=== PATIENT | female | born 1965 | race American Indian/Alaskan Native ===

== ENCOUNTER 2017-11-09 18:44 | Emergency (ER) | payer MEDICARE ==
[2017-11-09] MEDS ORDERED: MOTRIN PO ONE (21:59)
--- NOTE | 2017-11-09 22:54 | Emergency Department Report ---
ED Female HPI - General Chief complaint: Urogenital-Female Stated complaint: PAIN IN LEFT BREAST Time Seen by Provider: 11/09/17 22:07 Source: patient Mode of arrival: Ambulatory Limitations: No Limitations - History of Present Illness Initial comments: History 2-year-old Afro-[place] female with a history of breast cancer with right breast since and no note removed. She has a history of bilateral silicone breast implant status post bilateral breast mastectomy. She comes in today for left breast with a dime-sized ulceration four-week and reports is not healing with use of Neosporin and having pain that shoots down her left inner arm. Patient denies any fever or chills no nausea no vomiting no discharge from the ulceration. Patient denies any numbness to the left hand. Denies any recent trauma to the breast. She does report wearing underwire bra and the wire has rubbed against her lateral aspect of her breasts and this caused an ulceration. She reports that this area is very very sensitive. Patient has been status post chemotherapy for breast cancer for 8 years. -: week(s) (1) Severity scale (0 -10): 6 - Related Data Home Medications Medication Instructions Recorded Confirmed Last Taken Citalopram [Celexa] 20 mg PO QDAY 04/05/13 04/05/13 Unknown Diazepam Tab [Valium] 5 mg PO QDAY 04/05/13 04/05/13 04/04/13 21:00 LORazepam [Ativan] 1 mg PO QDAY 04/05/13 04/05/13 Unknown Letrozole (Nf) [Femara (Nf)] 2.5 mg PO QDAY 04/05/13 04/05/13 Unknown Oxycodone HCl [Roxicodone TAB] 30 mg PO Q6H 04/05/13 04/05/13 Unknown lamoTRIgine [Lamotrigine] 100 mg PO QDAY 04/05/13 04/05/13 Unknown Previous Rx's Medication Instructions Recorded Last Taken Type Benzonatate [Tessalon Perle] 100 mg PO Q6HR PRN #20 capsule 04/05/13 Unknown Rx Cyclobenzaprine HCl 5 mg PO TID PRN #30 tablet 04/05/13 Unknown Rx [Cyclobenzaprine] HYDROmorphone [Dilaudid] 2 mg PO Q6HR #20 tablet 04/05/13 Unknown Rx Acetaminophen/Codeine 1 tab PO Q6H PRN #14 tab 02/06/14 Unknown Rx [Acetaminophen-Codeine #3 TAB] Cephalexin [Keflex] 500 mg PO QID 7 Days capsule 02/06/14 Unknown Rx Promethazine [Phenergan] 25 mg PO Q6H PRN #14 tablet 02/06/14 Unknown Rx Ibuprofen [Motrin 600 MG tab] 600 mg PO Q8H PRN #30 tablet 11/09/17 Unknown Rx Allergies Allergy/AdvReac Type Severity Reaction Status Date / Time Penicillins Allergy Hives Verified 04/05/13 14:11 ED Review of Systems ROS: Stated complaint: PAIN IN LEFT BREAST Other details as noted in HPI Skin: lesions (on left breast) ED Past Medical Hx - Past Medical History Previous Medical History?: Yes Hx Hypertension: Yes Hx of Cancer: Yes (breast) Hx Psychiatric Treatment: Yes (bipolar) - Surgical History Past Surgical History?: Yes Hx Cholecystectomy: Yes Hx Breast Surgery: Yes (bilat mastectomy with reconstruction) Additional Surgical History: Manuel breast silicone implant, Left chest port, Hysterectomy - Social History Smoking Status: Current Every Day Smoker Substance Use Type: Alcohol, Marijuana, Prescribed - Medications Home Medications: Home Medications Medication Instructions Recorded Confirmed Last Taken Type Benzonatate [Tessalon Perle] 100 mg PO Q6HR PRN #20 capsule 04/05/13 Unknown Rx Citalopram [Celexa] 20 mg PO QDAY 04/05/13 04/05/13 Unknown History Cyclobenzaprine HCl 5 mg PO TID PRN #30 tablet 04/05/13 Unknown Rx [Cyclobenzaprine] Diazepam Tab [Valium] 5 mg PO QDAY 04/05/13 04/05/13 04/04/13 21:00 History HYDROmorphone [Dilaudid] 2 mg PO Q6HR #20 tablet 04/05/13 Unknown Rx LORazepam [Ativan] 1 mg PO QDAY 04/05/13 04/05/13 Unknown History Letrozole (Nf) [Femara (Nf)] 2.5 mg PO QDAY 04/05/13 04/05/13 Unknown History Oxycodone HCl [Roxicodone TAB] 30 mg PO Q6H 04/05/13 04/05/13 Unknown History lamoTRIgine [Lamotrigine] 100 mg PO QDAY 04/05/13 04/05/13 Unknown History Acetaminophen/Codeine 1 tab PO Q6H PRN #14 tab 02/06/14 Unknown Rx [Acetaminophen-Codeine #3 TAB] Cephalexin [Keflex] 500 mg PO QID 7 Days capsule 02/06/14 Unknown Rx Promethazine [Phenergan] 25 mg PO Q6H PRN #14 tablet 02/06/14 Unknown Rx Ibuprofen [Motrin 600 MG tab] 600 mg PO Q8H PRN #30 tablet 11/09/17 Unknown Rx ED Physical Exam - General Limitations: No Limitations General appearance: alert, in no apparent distress - Head Head exam: Present: atraumatic, normocephalic - ENT ENT exam: Present: mucous membranes moist - Respiratory Respiratory exam: Present: normal lung sounds bilaterally. Absent: respiratory distress - Cardiovascular Cardiovascular Exam: Present: regular rate, normal rhythm. Absent: systolic murmur, diastolic murmur, rubs, gallop - GI/Abdominal GI/Abdominal exam: Present: soft, normal bowel sounds - Neurological Exam Neurological exam: Present: alert, oriented X3 - Psychiatric Psychiatric exam: Present: normal affect, normal mood - Expanded Skin Exam Expanded Type of lesion: Present: other (ulceration, dry, tender to palpate, not erythematous edematous surrounding skin.) Description of rash: Present: size (dime size) ED Course Vital Signs 11/09/17 19:06 Temperature 98.2 F Pulse Rate 100 H Respiratory 18 Rate Blood Pressure 115/79 O2 Sat by Pulse 97 Oximetry ED Medical Decision Making - Medical Decision Making Patient has been evaluated by this provider fast track. Ibuprofen given for pain management. In depth conversation in regards to following up with her breast specialist. Patient reports that she'll follow up next week. Critical care attestation.: If time is entered above; I have spent that time in minutes in the direct care of this critically ill patient, excluding procedure time. ED Disposition Clinical Impression: Ulcerative lesion Disposition: DC-01 TO HOME OR SELFCARE Is pt being admited?: No Does the pt Need Aspirin: No Condition: Stable Additional Instructions: Please take ibuprofen [id number] or prescription for pain management. It is very important for you to follow up with her breasts cancer provider. I highly recommend free to see them within the next 3-5 days. Prescriptions: Ibuprofen [Motrin 600 MG tab] 600 mg PO Q8H PRN #30 tablet PRN Reason: Pain Referrals: PRIMARY CARE,MD [Primary Care Provider] - 3-5 Days Your, Breast Care Provider [Other] - 3-5 Days Breast Care, Clinic [Other] - 3-5 Days Forms: Work/School Release Form(ED)
[2017-11-09 23:25] VITALS: BP 121/69
== END 2017-11-09 23:25 | disposition home or self-care (01) ==
LOC: ED 18:44
DX: N61.1 Abscess of the breast and nipple (principal); I10 Essential (primary) hypertension; F31.9 Bipolar disorder, unspecified; F17.200 Nicotine dependence, unspecified, uncomplicated; F12.10 Cannabis abuse, uncomplicated; Z85.3 Personal history of malignant neoplasm of breast; Z90.89 Acquired absence of other organs
CPT/HCPCS: 99282